=== PATIENT | female | born 1940 | race Hispanic/Latino ===

== ENCOUNTER → 2017-07-05 | Day surgery (SDC) | payer OTHER ==
[2017-06-29 15:54] LABS: BASOPHILS # (AUTO) 0.1 (0.0-0.1); BASOPHILS % 0.9 % (0.0-1.0); EOSINOPHILS # (AUTO) 0.1 (0.0-0.4); EOSINOPHILS % 1.8 % (0.0-6.0); HEMOGLOBIN 13.7 g/dL (12.0-16.0); LYMPHOCYTES # (AUTO) 3.6 (1.0-3.2); LYMPHOCYTES % 48.4 % (18.0-39.1); MEAN CORPUSCULAR HEMOGLOBIN 31.9 pg (28-32); MEAN CORPUSCULAR HGB CONC 33.4 g/dL (31-35); MEAN CORPUSCULAR VOLUME 95.6 fL (81-99); MONOCYTES # (AUTO) 0.4 (0.2-0.8); MONOCYTES % 5.9 % (4.4-11.3); NEUTROPHILS # (AUTO) 3.2 (2.1-6.9); NEUTROPHILS % 42.9 % (38.7-80.0); PLATELET COUNT 343 x10e3/uL (140-360); RED BLOOD COUNT 4.29 x10e6/uL (3.6-5.1)
--- NOTE | 2017-06-29 16:35 | Diagnostic Imaging Report ---
PROCEDURE: Frontal and lateral views of the chest. COMPARISON: Patients [facility], , CHEST 2 VIEWS, 02/09/2012, 16:14. INDICATIONS: PRE OP FINDINGS: Lines/tubes: None. Lungs: The lungs are well inflated and clear. There is no evidence of pneumonia or pulmonary edema. Pleura: There is no pleural effusion or pneumothorax. Heart and mediastinum: The heart and the mediastinum are normal. Bones: No acute bony abnormality. Degenerative changes in the thoracic spine. IMPRESSION: 1. No acute cardiopulmonary abnormalities Dexter Tinoco M.D. Dictated by: Dexter Tinoco M.D. on 06/29/2017 at 16:44 Electronically approved by: Dexter Tinoco M.D. on 06/29/2017 at 16:44
[~2017-07-05] MED LIST: ACETAMINOPHEN 1000 MG/100 ML IV ONE; ALENDRONATE SOD70 MG PO; BETAMETHASONE DISODIUM PHOS 6 MG/ML VIAL ONE; CALCIUM PO; CITALOPRAM HBR20 MG PO; CLINDAMYCIN PHOS 900MG/ D5W 50 50 ML IV ONE; DEXAMETHASONE SOD PHOS INJ 4 MG/ML VIAL ONE; EPHEDRINE SULFATE INJ 50 MG/10 ML SYR ONE; FENTANYL CITRATE/PF 100MCG/2 ML INJ ONE; LIDOCAINE HCL 2% LOCAL INJ 5 ML SDV VIAL INJ ONE; MIRTAZAPINE30 M1 PO; NEOSTIGMINE 1 MG/ML 10ML VIAL ONE; OMEPRAZOLE40 MG; ONDANSETRON HCL INJ 2 MG/ML VIAL ONE; PROPOFOL IV EMULSION 10 MG/ML 20 ML VIAL ONE; SEVOFLURANE INHAL SOLN 250 ML PEN BTL ONE; TRAMADOL HCL-A1 EAC1 PO; ULTRACET TABLE1 EACH PO; Z.0.CITALOPRAM HBR40 PO; Z.0.LISINOPRIL40 MG PO; [UNRECOGNIZED DRUG - OTHER] PO
--- OUTSIDE RECORDS SUMMARY | 2017-07-05 08:09 | XMS REPORT ---
Author [facility] Address Unknown Phone Unavailable Care Team Providers Care Paintless Dent Repair Technician Name Role Phone SONIAALEXANDRA WALTER Unavailable Unavailable Problems This patient has no known problems. Allergies, Adverse Reactions, Alerts This patient has no known allergies or adverse reactions. Medications This patient has no known medications. Results Test Description Test Time Test Comments Text Results Atomic Results Result Comments CHEST 2 VIEWS [place] [address] Patient Name: HELENE TAO MR #: [id number] : 1940 Age/Sex: 76/F Req #: [id number] Adm Physician: Ordered by: WALTER GOLDEN DPM Report #: [id number] Location: OR Room/Bed: Procedure: [id number] DX/CHEST 2 VIEWS Exam Date: 06/29/17 Exam Time : 1600 REPORT STATUS: Signed PROCEDURE: Frontal and lateral views of the chest. COMPARISON: [facility], CHEST 2 VIEWS, 2011, 16:14. INDICATIONS: PRE OP FINDINGS: Lines/tubes: None. Lungs: The lungs are well inflated and clear. There is no evidence of pneumonia or pulmonary edema. Pleura: There is no pleural effusion or pneumothorax. Heart and mediastinum: The heart and the mediastinum are normal. Bones: No acute bony abnormality. Degenerative changes in the thoracic spine. IMPRESSION: 1. No acute cardiopulmonary abnormalities Kati Tinoco M.D. Dictated by: Kati Tinoco M.D. on 06/29/2017 at 16:44 Electronically approved by: Kati Tinoco M.D. on 06/29/2017 at 16:44 Dictated By: KATI TINOCO MD [id number] Transcribed By: TYRONE on 06/29/17 1644 COPY TO: WALTER GOLDEN DPM
--- OUTSIDE RECORDS SUMMARY | 2017-07-05 08:09 | XMS REPORT | Clinical Summary ---
Author Author [facility] Address Unknown Phone Unavailable Care Team Providers Care Clinical Trials Data Coordinator Name Role Phone Mina Harkins MD PCP Allergies Active Allergy Reactions Severity Noted Date Comments Penicillins Hives Medium 02/11/2017 Current Medications Prescription Sig. Disp. Refills Start End Date Status Date citalopram (CeleXA) 40 MG Take 40 mg by mouth Active tablet daily. mirtazapine (REMERON Take 30 mg by mouth Active KRYSTEN-TAB) 30 MG nightly. disintegrating tablet omeprazole (PriLOSEC) 40 Take 40 mg by mouth Active MG capsule daily. traMADol-acetaminophen Take 1 tablet by mouth Active (ULTRACET) 37.5-325 mg every 6 (six) hours as per tablet needed for moderate pain. alendronate (FOSAMAX) 70 Take 70 mg by mouth every Active MG tablet 7 days. Take in the morning with a full glass of water, on an empty stomach, and do not take anything else by mouth or lie down for the next 30 min. TAKES ON SUNDAYS lisinopril Take 20 mg by mouth Active (PRINIVIL,ZESTRIL) 20 mg daily. tablet estradiol (ESTRACE) 0.01 Insert one gram three 42.5 g 1 04/13/20 Active % (0.1 mg/gram) vaginal times per week 17 cream conjugated estrogens Insert 0.5 gram vaginally 30 g 1 02/12/2004/12 Discontin (PREMARIN) 0.625 mg/gram three times/week at night 17 17 ued vaginal creamIndications: Vaginal atrophy conjugated estrogens Insert 0.5 gram vaginally 30 g 1 04/12/2004/13 Discontin (PREMARIN) 0.625 mg/gram three times/week at night 17 17 ued vaginal creamIndications: Vaginal atrophy acetaminophen-codeine Take 1 tablet by mouth 30 tablet 0 04/12/20 (TYLENOL WITH CODEINE #3) every 4 (four) hours as 17 17 300-30 mg per tablet needed for moderate pain for up to 30 days. docusate sodium (COLACE) Take 1 capsule (100 mg 60 capsule 0 04/12/20 05/12/20 100 MG capsule total) by mouth 2 (two) 17 17 times a day for 30 days. Active Problems No known active problems Encounters Date Type Specialty Care Team Description 06/11/2017 Telephone Urogynecology Radha Cardona LVN 06/07/2017 Office Visit Urogynecology Bere Humphries Postop check (Primary MD Lloyd Dx);Vaginal itching;Vulvar irritation 04/30/2017 Office Visit Urogynecology Slime Lozada NP Post- operative state (Primary Dx) 04/16/2017 Telephone Urogynecology Layla Olea LVN 04/13/2017 Orders Only Urogynecology Layla Olea, DHARMESH Vaginal atrophy 04/12/2017 [facility] Obstetrics and Gynecology Bere Humphries Vaginal atrophy Encounter MD Lloyd 04/12/2017 Procedure Pass Obstetrics and Gynecology 04/12/2017 Surgery Obstetrics and Gynecology Bere Humphries POSTERIOR REPAIR, MD Lloyd CYSTOSCOPY 04/07/2017 Telephone Urogynecology Layla Olea LVN 04/05/2017 Telephone Urogynecology Layla Olea LVN 04/01/2017 Pre-Admit Pre-Admission Testing Bere Humphries Preop testing (Primary Testing MD Lloyd Dx) Appointment 04/01/2017 Office Visit Urogynecology Bere Humphries Rectocele (Primary MD Lloyd Dx);Nocturia;Urge urinary incontinence 04/01/2017 Anesthesia Obstetrics and Gynecology Petrona Blackwell, BUSINESS SOLUTIONS CONSULTANT Event 02/16/2017 Telephone Urogynecology Layla Olea LVN 02/16/2017 Telephone Urogynecology Layla Olea LVN 02/11/2017 Office Visit Urogynecology Bere Humphries Rectocele (Primary MD Lloyd Dx);Nocturia;Vaginal atrophy;Leukocytes in urine after 07/04/2016 Family History Medical History Relation Name Comments Heart disease Father Relation Name Status Comments Father Mother flesh eating bacteria (Age 91) Sister Alive Social History Tobacco Use Types Packs/Day Years Used Date Never Smoker Smokeless Tobacco: Never Used Alcohol Use Drinks/Week oz/Week Comments No Sex Assigned at Date Recorded Not on file Last Filed Vital Signs Vital Sign Reading Time Taken Blood Pressure 161/75 06/07/2017 11:43 AM [employer] Pulse 66 06/07/2017 11:43 AM [employer] Temperature 36.3 C (97.4 F) 06/07/2017 11:43 AM [employer] Respiratory Rate 14 04/12/2017 10:17 AM [employer] Oxygen Saturation 99% 04/12/2017 10:17 AM [employer] Inhaled Oxygen - - Concentration Weight 76.2 kg (168 lb) 06/07/2017 11:43 AM [employer] Height 165.1 cm (5' 5") 06/07/2017 11:43 AM [employer] Body Mass Index 27.96 06/07/2017 11:43 AM [employer] Plan of Treatment Health Maintenance Due Date Last Done Comments ZOSTER VACCINE 2000 PNEUMOCOCCAL 2005 POLYSACCHARIDE VACCINE AGE 65 AND OVER PNEUMOCOCCAL-13 2005 INFLUENZA VACCINE 12/29/2016 Procedures Procedure Name Priority Date/Time Associated Diagnosis Comments GA AN ELECTIVE Routine 04/12/2017 ENDOTRACHEAL AIRWAY 8:14 AM [employer] Procedure Note - Laura Toledo, SAUSAGE MIXER - 04/12/2017 8:09 AM [employer] Airway Date/Time: 04/12/2017 7:48 AM Performed by: LAURA TOLEDO Authorized by: BRAD CHACKO Location: OR Urgency: Elective Difficult Airway: No Anesthesio logist: BRAD CHACKO Resident/C RNA: LAURA TOLEDO Performed by: resident/C RNA Preoxygena emory with 100% O2: Yes C-spine Precaution s Maintained Throughout : No Mask Ventilatio n: Easy mask Final Airway Type: Endotrache al airway Final Endotrache al Airway: ETT Cuffed: Yes Technique Used: Direct laryngosco py Insertion Site: Oral Blade Type: Haddad Laryngosco pe Blade/Vide olaryngosc ope Blade Size: 2 ETT Size (mm): 7.0 Cuff at minimum occlusion pressure: Yes Measured from: Lips ETT to Lips (cm): 22 Placement Verified by: CO2 detection, direct visualizat ion and equal breath sounds Laryngosco pic view: Grade I - full view of glottis Rapid Sequence Induction (RSI): No Modified RSI: No Number of Attempts at Approach: 1 Intubated by SRNA. Marilia Atraumatic intubation . Dentition unchanged. OG tube inserted with minimal secretions noted, to be removed at end of case. POSTERIOR REPAIR, 04/12/2017 Rectocele CYSTOSCOPY 7:30 AM [employer] Case Notes REQ 0730 START Special Needs REQ 0730 START after 07/04/2016 Results * NuSwab Vaginitis (VG) (06/07/2017 1:20 PM) Component Value Ref Range Atopobium vaginae Low - 0 Score BVAB 2 Low - 0 Score Megasphaera species Low - 0 Score Comment: Calculate total score by adding the 3 individual bacterial vaginosis (BV) marker scores together. Total score is interpreted as follows: Total score 0-1: Indicates the absence of BV. Total score 2: Indeterminate for BV. Additional clinical data should be evaluated to establish a diagnosis. Total score 3-6: Indicates the presence of BV. This test was developed and its performance characteristics determined by [facility]. It has not been cleared or approved by the Food and Drug Administration. The FDA has determined that such clearance or approval is not necessary. Stefania albicans, CLARENCE Negative Negative C. glabrata, DNA Positive (A) Negative Comment: This test was developed and its performance characteristics determined by [facility]. It has not been cleared or approved by the Food and Drug Administration. The FDA has determined that such clearance or approval is not necessary. Published data demonstrate that up to 65% of Stefania glabrata identified in cases of vaginal candidiasis have decreased susceptibility to fluconazole. Trichomonas vag by CLARENCE Negative Negative Specimen Performing Laboratory Swab [facility] Narrative Performed at: [id number] Bar Catcher: Ishan Tilley MD, Phone:[phone] * Gram stain (04/01/2017 2:55 PM) Component Value Ref Range Gram stain result No WBC's or organisms seen. Comment: Specimen Information Specimen Source: Urine Specimen Site: See UA Specimen Performing Laboratory Urine [facility] DEPARTMENT OF PATHOLOGY AND GENOMIC MEDICINE [address] [place] [address] * Urine culture (04/01/2017 2:55 PM) Only the most recent of 2 results within the time period is included. Component Value Ref Range Urine culture isolate Mixed Gram positive jamshid 10-3 cfu/ml (A) Comment: Specimen Information Specimen Source: Urine Specimen Site: See UA Specimen Performing Laboratory Urine [facility] DEPARTMENT OF PATHOLOGY AND GENOMIC MEDICINE [address] [place] [address] * Urinalysis screen and microscopy, with reflex to culture (04/01/2017 12:10 PM) Component Value Ref Range Specimen site Clean catch Color, UA Straw Appearance, UA Clear Specific gravity, UA 1.009 1.001 - 1.035 pH, UA 8.0 5.0 - 8.5 Protein, UA Negative Negative Glucose, UA Negative Negative Ketones, UA Negative Negative Bilirubin, UA Negative Negative Blood, UA Negative Negative Nitrite, UA Negative Negative Urobilinogen, UA <2.0 <2.0 Leukocyte esterase, UA Trace (A) Negative Epithelial cells, UA <1 /HPF WBC, UA 1 0 - 4 /HPF RBC, UA None seen 0 - 2 /HPF Bacteria, UA None seen None seen Yeast, UA None seen Yeast with pseudohyphae, None seen UA Specimen Performing Laboratory Urine [facility] DEPARTMENT OF PATHOLOGY AND GENOMIC MEDICINE [address] [place] [address] * POC urinalysis dipstick (02/11/2017 2:44 PM) Component Value Ref Range Color urine, POC Yellow Clarity urine, POC Clear Glucose urine, POC Negative Negative Bilirubin urine, POC Negative Negative Ketones urine, POC Negative Negative Specific gravity urine, </=1.005 1.005 - 1.030 POC Blood urine, POC Negative Negative pH urine, POC 7.5 5.0, 5.5, 6.0, 6.5, 7.0, 7.5, 8.0, 8.5 Protein urine, POC Negative Negative Urobilinogen urine, POC <2.0 <2.0 Nitrite urine, POC Negative Negative Leukocyte esterase urine, Moderate (A) Negative POC Specimen Performing Laboratory Urine * Measure post void residual (02/11/2017) Component Value Ref Range Total volume 0ml after 07/04/2016 Insurance Payer Benefit Subscriber ID Type Phone Address Plan / Group [employer] [id number] [facility] HELENE MINOR Personal/F Self 1940 Home: [id number] [place] [address]
--- NOTE | 2017-07-05 10:44 | Operative Report ---
DATE OF PROCEDURE: July 05, 2017 PREOPERATIVE DIAGNOSIS: Painful ganglion cyst, left ankle and foot. POSTOPERATIVE DIAGNOSES 1. Painful ganglion cyst, left ankle and foot. 2. Entrapment neuritis, left ankle and foot. PROCEDURES 1. Excision of ganglion cyst, left foot and ankle. 2. Neurolysis, left foot. 3. Trigger-point cortisone injection. ANESTHESIA: General LMA. HEMOSTASIS: Pneumatic tourniquet, left thigh, inflated to 350 mmHg. ESTIMATED BLOOD LOSS: Less than 5 mL. PATHOLOGY: Ganglion cyst. INSPECTOR ROUGH CASTINGS: None. INJECTABLES: 10 mL of 9:1 mixture of 2% lidocaine plain and betamethasone 30 mg per 5 mL. INDICATIONS FOR PROCEDURE: Ms. Minor is a pleasant, 76-year-old female having discomfort and pain associated to her left ankle and foot secondary to the aforementioned. She has failed conservative treatment. MRI confirms the presence of the aforementioned. Thus, she is willing and able to proceed with surgical intervention. DESCRIPTION OF PROCEDURE: Under mild sedation, the patient was brought to the operating room and placed on the operating room table in the supine position. Following induction and administration of general LMA anesthesia by anesthesia services, a well-padded pneumatic tourniquet was placed on the patient's left thigh. Next, the distal left lower extremity was scrubbed, prepped and draped in the usual aseptic manner. Attention was then directed to the lateral aspect of the left ankle and foot. Just proximal to the sinus tarsi region where the large, ganglion cyst-like mass resided, an incision was created longitudinally over the same that measured approximately 2 to 3 inches in length. The incision was then deepened utilizing a combination of sharp, blunt and electrocautery dissection. The ganglion cyst was clearly visualized with a soft-tissue mass clearly visualized with a gelatinous material within consistent with ganglion cyst. Meticulous dissection was then carried to separate the same from its adhesions and attachments. Of interest was the fact that there was intervening dorsal cutaneous nerve entrapment associated with the same, and neurolysis of the same had to be performed. This was further expanded as the next number procedure. Once the ganglion was freed of all soft-tissue attachments, it was labeled accordingly and sent for pathologic studies. Procedure #2: Neurolysis, intervening dorsal cutaneous nerve. The dorsal cutaneous nerve had to be neurolysed from the soft-tissue attachments, and this was performed successfully without transecting the same or the smaller branches. Upon completion of the aforementioned procedures, the area was then copiously irrigated. Any bleeders were cauterized, and then this was closed in layers. Procedure #3: Trigger-point cortisone injection. Trigger-point cortisone injection was infiltrated to the surgical site to decrease postoperative inflammatory response. Procedure #4: Compressive dressings were applied followed by application of posterior splint to protect the surgical site. The patient was then subsequently extubated and transferred to the PACU with vital signs stable. Job#: [id number]
== END | disposition home or self-care (01) ==
LOC: OR 08:07
PROVIDERS: ATTEND Podiatrist Foot Surgery
DX: M67.472 Ganglion, left ankle and foot (principal); I10 Essential (primary) hypertension; K58.9 Irritable bowel syndrome, unspecified; Z01.810 Encounter for preprocedural cardiovascular examination; Z01.812 Encounter for preprocedural laboratory examination; Z01.818 Encounter for other preprocedural examination
CPT/HCPCS: 28090; 36415; 71046; 85025; 88304; 93005; J0720; J1100; J2001; J2405; J2710

== ENCOUNTER → 2018-09-13 | Outpatient (CLI) | payer MEDICARE ==
[~2018-09-13] MED LIST changes: -ACETAMINOPHEN 1000 MG/100 ML IV ONE; -BETAMETHASONE DISODIUM PHOS 6 MG/ML VIAL ONE; -CLINDAMYCIN PHOS 900MG/ D5W 50 50 ML IV ONE; -DEXAMETHASONE SOD PHOS INJ 4 MG/ML VIAL ONE; -EPHEDRINE SULFATE INJ 50 MG/10 ML SYR ONE; -FENTANYL CITRATE/PF 100MCG/2 ML INJ ONE; -LIDOCAINE HCL 2% LOCAL INJ 5 ML SDV VIAL INJ ONE; -NEOSTIGMINE 1 MG/ML 10ML VIAL ONE; -ONDANSETRON HCL INJ 2 MG/ML VIAL ONE; -PROPOFOL IV EMULSION 10 MG/ML 20 ML VIAL ONE; +REGADENOSON 0.4 MG/5 ML SYR IV ONE; -SEVOFLURANE INHAL SOLN 250 ML PEN BTL ONE
== END ==
LOC: NM 08:25
DX: R94.31 Abnormal electrocardiogram [ECG] [EKG] (principal)
CPT/HCPCS: 78452; 93017; A9502; J2785